=== PATIENT | female | born 1990 | race American Indian/Alaskan Native ===

== ENCOUNTER 2019-06-25 18:47 | Emergency (ER) | payer MEDICAID ==
[2019-06-25 19:31] VITALS: BP 136/92
[2019-06-25] MEDS ORDERED: IPRATROPIUM/ALBUTEROL SULFATE 3 ML AMPUL.NEB IH ONE (19:33)
--- NOTE | 2019-06-25 19:33 | Emergency Department Report ---
Blank Doc - Documentation Documentation: 29-year-old female that presents with body aches, cough, subjective fever. Exam: Wheezing noted on exam This initial assessment/diagnostic orders/clinical plan/treatment(s) is/are subject to change based on patient's health status, clinical progression and re- assessment by fellow clinical providers in the ED. Further treatment and workup at subsequent clinical providers discretion. Patient/guardians urged not to elope from the ED as their condition may be serious if not clinically assessed and managed. Initial orders include: 1- Patient sent to [facility] for further evaluation and treatment 2- cxr 3- breathing treatment
--- NOTE | 2019-06-25 20:14 | XRay Report ---
CHEST 2 VIEWS INDICATION / CLINICAL INFORMATION: sob/wheezing/cough. COMPARISON: None available. FINDINGS: SUPPORT DEVICES: None. HEART / MEDIASTINUM: No significant abnormality. LUNGS / PLEURA: No significant pulmonary or pleural abnormality. No pneumothorax. ADDITIONAL FINDINGS: No significant additional findings. IMPRESSION: 1. No acute findings. Signer Name: Femi Braxton MD Signed: 06/25/2019 8:09 PM Workstation Name: [id number]
--- NOTE | 2019-06-25 21:21 | Emergency Department Report ---
Minor Respiratory - HPI Chief Complaint: Upper Respiratory Infection Stated Complaint: COUGHING/RUNNY NOSE/FEVER Time Seen by Provider: 06/25/19 19:30 Duration: 1 Day Pain Location: Nose, Chest Severity: mild Minor Respiratory: Yes Rhinorrhea, Yes Sore Throat, Yes Able to Tolerate Fluids, Yes Cough, Yes Sick Contacts, Yes Chest Pain, No Ear Pain, No Hemoptysis, No Shortness of Breath, No Fever Other History: This is a 29-year-old -[place] female who presents to the emergency room with a productive cough, fever, myalgia chest tightness and chills for 1 day. Patient denies recent travel or being around confirmed COVID 19 individual. States started taking ibuprofen when symptoms started yesterday. Decided to come in for evaluation after feeling chest tightness. Denies shortness of breath, weakness, headache, wheezing, nausea, vomiting, diarrhea, or abdominal pain. ED Review of Systems ROS: Stated complaint: COUGHING/RUNNY NOSE/FEVER Other details as noted in HPI Constitutional: chills. denies: fever ENT: congestion. denies: ear pain, throat pain, epistaxis Respiratory: cough. denies: orthopnea, shortness of breath, SOB with exertion, wheezing Cardiovascular: chest pain. denies: palpitations, dyspnea on exertion, orthopnea, edema Gastrointestinal: denies: abdominal pain, nausea, diarrhea Musculoskeletal: myalgia. denies: back pain, joint swelling, arthralgia Skin: denies: rash, lesions Neurological: denies: headache, weakness, paresthesias Psychiatric: denies: anxiety, depression ED Past Medical Hx - Past Medical History Previous Medical History?: Yes Hx Hypertension: No Hx Heart Attack/AMI: No Hx Congestive Heart Failure: No Hx Diabetes: No Hx Deep Vein Thrombosis: No Hx Renal Disease: No Hx Sickle Cell Disease: No Hx Seizures: No Hx Asthma: Yes (CHILDHOOD) Hx COPD: No Hx HIV: No - Surgical History Past Surgical History?: Yes Additional Surgical History: hernia repair. - Social History Smoking Status: Current Some Day Smoker Substance Use Type: None - Medications Home Medications: Home Medications Medication Instructions Recorded Confirmed Last Taken Type Vits96/Iron Fum/Folic 1 each PO QDAY 07/04/13 12/14/15 06/14/15 09:00 History [ Tablet] 1 tablet Ibuprofen [Motrin 600 MG tab] 600 mg PO Q6HR PRN #60 tablet 12/15/15 Unknown Rx Benzonatate [Tessalon Perles] 100 mg PO Q8HR PRN #30 capsule 06/25/19 Unknown Rx Fluticasone [Flonase] 1 spray NS QDAY #1 bottle 06/25/19 Unknown Rx Minor Respiratory Exam - Exam General: Vital signs noted. No distress. Alert and acting appropriately. HEENT: Yes Moist Mucous Membranes, Yes Rhinorrhea, No Pharyngeal Erythema, No Pharyngeal Exudates, No Conjuctival Injection, No Frontal Tenderness, No Maxillary Tenderness Ear: Neither TM Bulge, Neither TM Erythema, Neither EAC Pain, Neither EAC Discharge Neck: Yes Supple, No Adenopathy Lungs: Yes Good Air Exchange, No Wheezes, No Ronchi, No Stridor, No Cough, No Labored Respirations, No Retractions, No Use of Accessory Muscles, No Other Abnormal Lung Sounds Heart: Yes Regular, No Murmur Abdomen: Yes Normal Bowel Sounds, No Tenderness, No Peritoneal Signs Skin: No Rash, No Edema Neurologic: Alert and oriented, no deficits. Musculoskeletal: Unremarkable. ED Course Vital Signs 06/25/19 06/25/19 18:59 21:10 Temperature 98.7 F Pulse Rate 95 H Pulse Rate [ 96 H Bilateral] Respiratory 18 Rate Respiratory 22 Rate [Bilateral ] Blood Pressure 136/92 O2 Sat by Pulse 97 Oximetry ED Medical Decision Making - Radiology Data Radiology results: report reviewed CHEST 2 VIEWS INDICATION / CLINICAL INFORMATION: sob/wheezing/cough. COMPARISON: None available. FINDINGS: SUPPORT DEVICES: None. HEART / MEDIASTINUM: No significant abnormality. LUNGS / PLEURA: No significant pulmonary or pleural abnormality. No pneumothorax. ADDITIONAL FINDINGS: No significant additional findings. IMPRESSION: 1. No acute findings. - Medical Decision Making 29 y.o. female that presents with URI symptoms. Past medical history of asthma. Patient is nontoxic appearing with normal vitals. No distress noted. Vitals normal. Patient is otherwise healthy patient with viral upper respiratory symptoms. She denies shortness of breath, chest pain, weakness, headache, nausea, vomiting, diarrhea, or abdominal pain or fever. No vocal changes or uvula deviation to be concern for [employer]. There is low suspicion of influenza, pneumonia, strep throat, or sinusitis. Chest x-ray negative for acute cardiopulmonary findings. Labs are deferred at this time. There are no indications for antibiotics at this time. Will start supportive medication. Instructed to continue [id number] cold and flu medications, increase fluid intake, and wash hands frequently. Discharged home stable with strict return instructions. Follow up with Primary Care Provider in 2-3 days. Return to work tomorrow. Critical care attestation.: If time is entered above; I have spent that time in minutes in the direct care of this critically ill patient, excluding procedure time. ED Disposition Clinical Impression: Nasopharyngitis acute, Respiratory tract congestion with cough Disposition: TO HOME OR SELFCARE Is pt being admited?: No Condition: Stable Instructions: Upper Respiratory Infection (ED), Cold Symptoms (ED) Additional Instructions: Increase fluid intake and rest. Wash hands frequently. Continue taking Tylenol or ibuprofen to control fever. Follow up with Primary Care Provider. Return to ER if fever, SOB, or difficulty breathing after 48 hours of supportive care. Prescriptions: Fluticasone [Flonase] 1 spray NS QDAY #1 bottle Benzonatate [Tessalon Perles] 100 mg PO Q8HR PRN #30 capsule PRN Reason: Cough Referrals: [facility] [Outside] - 3-5 Days [facility] [Outside] - 3-5 Days [facility] [Provider Group] - 3-5 Days CISCO CHEEK MD [Staff Physician] - 3-5 Days Forms: Work/School Release Form(ED) Time of Disposition: 21:23
== END 2019-06-25 22:00 | disposition home or self-care (01) ==
LOC: ED 18:47
DX: J00 Acute nasopharyngitis [common cold] (principal); J34.89 Other specified disorders of nose and nasal sinuses; J45.909 Unspecified asthma, uncomplicated; F17.200 Nicotine dependence, unspecified, uncomplicated; Z98.890 Other specified postprocedural states; Z79.899 Other long term (current) drug therapy
CPT/HCPCS: 71046; 94640; 94644; 99283